=== PATIENT | female | born 1960 | race Caucasian/White ===

== ENCOUNTER → 2016-09-14 | Outpatient (CLI) | payer MEDICARE | LOC: MAMO 13:40 | DX: Z12.31 Encounter for screening mammogram for malignant neoplasm of breast (principal); N63 Unspecified lump in breast | CPT/HCPCS: G0202 ==

== ENCOUNTER → 2020-09-29 | Outpatient (CLI) | payer MEDICARE, OTHER ==
[~2020-09-29] MED LIST: AMITRIPTYLINE100 MG PO; ASPIRIN 325MG325 MG PO; K-DUR TAB 10 M10 MEQ PO; LASIX TAB 20 MG20 MG PO; LEXAPRO20 MG PO; MECLIZINE HCL25 MG PO; NEURONTIN300 MG PO; NEXIUM40 MG PO; NUCYNTA75 MG PO; ROPINIROLE HCL1 MG PO; SOMA350 MG PO; SYNTHROID 88 M88 MCG PO; TRAZODONE HCL300 MG PO; VENTOLIN HFA 66.7 GM INH; VISTARIL 50 MG50 MG PO; ZANAFLEX4 M1 PO
== END ==
LOC: RAD 12:58
DX: M54.6 Pain in thoracic spine (principal); M54.17 Radiculopathy, lumbosacral region; M51.34 Other intervertebral disc degeneration, thoracic region; M48.04 Spinal stenosis, thoracic region
CPT/HCPCS: 72072; 72100

== ENCOUNTER → 2020-10-21 | Outpatient (CLI) | payer MEDICARE, OTHER | LOC: MRI 10-17 13:00 | DX: M51.06 Intervertebral disc disorders with myelopathy, lumbar region (principal); M48.07 Spinal stenosis, lumbosacral region; M54.17 Radiculopathy, lumbosacral region | CPT/HCPCS: 72148 ==

== ENCOUNTER → 2020-12-23 | Outpatient (CLI) | payer MEDICARE, OTHER ==
[~2020-12-23] MED LIST changes: +PROVENTIL HFA6.7 GM INH; +TESSALON PERLE100 MG PO
[2020-12-31 13:10] LABS: AMPHETAMINES, URINE Negative ng/mL (Cutoff=1000); BARBITURATE Negative ng/mL (Cutoff=200); BENZODIAZEPINES Negative ng/mL (Cutoff=200); CANNABINOIDS Negative ng/mL (Cutoff=20); COCAINE (METABOLITE) Negative ng/mL (Cutoff=300); CREATININE 250.9 mg/dL (20.0-300.0); MEPERIDINE Negative ng/mL (Cutoff=200); METHADONE Negative (Cutoff=300); METHADONE See Final Results ng/mL (Cutoff=300); OPIATES Negative ng/mL (Cutoff=300); PHENCYCLIDINE Negative ng/mL (Cutoff=25); PROPOXYPHENE Negative ng/mL (Cutoff=300)
== END ==
LOC: LAB 15:12
PROVIDERS: Internal Medicine
DX: Z51.81 Encounter for therapeutic drug level monitoring (principal); Z79.899 Other long term (current) drug therapy
CPT/HCPCS: 80307

== ENCOUNTER 2021-03-03 07:41 | Emergency (ER) | payer MEDICARE ==
[~2021-03-03] VITALS: Ht 165.1 cm; Wt 86.2 kg
[~2021-03-03 07:41] MED LIST changes: -PROVENTIL HFA6.7 GM INH; -TESSALON PERLE100 MG PO
== END 2021-03-03 11:03 | disposition home or self-care (01) ==
LOC: ER1 07:41
DX: Z23 Encounter for immunization (principal); U07.1 COVID-19; J45.909 Unspecified asthma, uncomplicated; E03.9 Hypothyroidism, unspecified
CPT/HCPCS: 99283; M0243

== ENCOUNTER 2021-03-11 13:59 | Emergency (ER) | payer MEDICARE, MEDICAID ==
[2021-03-11 14:31] LABS: HEMOGLOBIN 12.6 gm/dl (12.3-15.3); RED BLOOD COUNT 4.31 M/UL (4.00-5.10); WHITE BLOOD COUNT 7.5 K/UL (4.5-11.0)
[2021-03-11 15:03] LABS: BUN/CREATININE RATIO 15 (0-10)
[2021-03-11] MEDS ORDERED: PROVENTIL HFA6.7 GM INH (17:53)
[2021-03-11] MEDS ORDERED: TESSALON PERLE100 MG PO (17:53)
== END 2021-03-11 18:23 | disposition home or self-care (01) ==
LOC: ER1 13:59
PROVIDERS: Nurse Practitioner
DX: U07.1 COVID-19 (principal); J12.82 Pneumonia due to coronavirus disease 2019; R79.89 Other specified abnormal findings of blood chemistry
CPT/HCPCS: 71046; 80053; 82550; 82553; 83874; 83880; 84484; 85025; 93005; 94640; 94664; 94760; 99285; Q9967

== ENCOUNTER 2021-07-19 11:19 | Emergency (ER) | payer MEDICARE ==
[~2021-07-19 11:19] MED LIST changes: +PROVENTIL HFA6.7 GM INH; +TESSALON PERLE100 MG PO
[2021-07-19 15:04] LABS: HEMOGLOBIN 12.4 gm/dl (12.3-15.3); RED BLOOD COUNT 4.33 M/UL (4.00-5.10)
[2021-07-19 15:23] LABS: BUN/CREATININE RATIO 20 (0-10)
== END 2021-07-19 20:52 | disposition home or self-care (01) ==
LOC: ER1 11:19
PROVIDERS: Nurse Practitioner
DX: U07.1 COVID-19 (principal); Z88.2 Allergy status to sulfonamides; Z88.5 Allergy status to narcotic agent
CPT/HCPCS: 36600; 71045; 80048; 81001; 82550; 82553; 82803; 83874; 84484; 85025; 85379; 85652; 86140; 93005; 94664; 96374; 99285; J1100; Q9967

== ENCOUNTER → 2021-10-22 | Outpatient (CLI) | payer MEDICARE | LOC: MAMO 12:42 | DX: Z12.31 Encounter for screening mammogram for malignant neoplasm of breast (principal) | CPT/HCPCS: 77063; 77067 ==

== ENCOUNTER → 2021-10-28 | Outpatient (CLI) | payer MEDICARE, OTHER ==
[~2021-10-28] MED LIST changes: +GREEN TEA250 MG PO; +HYDROXYZINE PAM25 MG PO; +IBU600 MG PO; +LIPITOR10 MG PO; +ZOFRAN 4 MG TAB4 MG PO
== END ==
LOC: KOH-I 09-27 08:15 → MRI 10-11 13:00
DX: M48.061 Spinal stenosis, lumbar region without neurogenic claudication (principal); M51.16 Intervertebral disc disorders with radiculopathy, lumbar region; M25.78 Osteophyte, vertebrae; Z98.1 Arthrodesis status; M48.07 Spinal stenosis, lumbosacral region
CPT/HCPCS: 72148

== ENCOUNTER → 2021-11-01 | Outpatient (CLI) | payer MEDICARE, OTHER ==
[2021-11-01 13:31] LABS: HEMOGLOBIN 12.1 gm/dl (12.3-15.3); RED BLOOD COUNT 4.18 M/UL (4.00-5.10)
[2021-11-01 13:57] LABS: BUN/CREATININE RATIO 28 (0-10)
== END ==
LOC: OPSV2 10-28 09:00 → EDSTATUS 12:30
PROVIDERS: Orthopaedic Surgery
DX: Z01.818 Encounter for other preprocedural examination (principal); M48.061 Spinal stenosis, lumbar region without neurogenic claudication; M54.16 Radiculopathy, lumbar region; Z88.5 Allergy status to narcotic agent; Z88.2 Allergy status to sulfonamides
CPT/HCPCS: 36415; 71046; 80048; 81001; 85025; 85610; 85730; 87081; 93005